=== PATIENT | female | born 1965 | race Caucasian/White ===

== ENCOUNTER 2016-04-09 05:56 | Day surgery (SDC) | payer BC ==
[2016-04-09] MEDS ORDERED: LACTATED RINGERS 1,000 ML ONE (06:06)
--- NOTE | 2016-04-09 09:24 | OP ---
DATE OF PROCEDURE: 04/09/16 PREOPERATIVE DIAGNOSIS: 1. Colorectal cancer screening. POSTOPERATIVE DIAGNOSIS: 1. Normal colonoscopy. PROCEDURE: 1. Colonoscopy. SURGEON: Claude Mitchell MD. SEDATION: Monitored anesthesia care. ESTIMATED BLOOD LOSS: 0 mL. PROCEDURE: Informed consent was obtained prior to sedation. The preprocedure cardiopulmonary assessment was satisfactory. The patient was brought to the Endoscopy Suite and placed in the left lateral decubitus position. She was then sedated by the anesthesia team. Digital rectal exam was unremarkable. The tip of the Olympus colonoscope was inserted into the rectum and advanced under direct visualization to the terminal ileum. The cecum was identified by the appendiceal orifice and ileocecal valve. Upon reaching the terminal ileum and cecum, the endoscope was slowly withdrawn from the colon with very careful examination of the colonic mucosa for the identification of any flat polyps or lesions. Preparation of the colon was good. The endoscopic was withdrawn into the rectum where a retroflexed view of the anal verge showed no abnormalities. The endoscope was then withdrawn from the patient and the procedure terminated. RECOMMENDATION: 1. Discharge the patient home with escort. 2. Advance to regular diet. 3. Resume present medications. 4. Repeat colonoscopy in 10 years for screening purposes. 5. Continue current bowel regimen for chronic constipation. 6. Return to GI clinic as needed. #[id number] [facility]
[2016-04-09 09:34] VITALS: BP 150/85; TEMP 97.8; O2SAT 97
[2016-04-09] MEDS ORDERED: PROPOFOL 200 MG/20 ML VIAL IV ONE (11:00)
== END 2016-04-09 09:31 | disposition home or self-care (01) ==
LOC: AMB 05:56
PROVIDERS: ATTEND Internal Medicine Gastroenterology
DX: Z12.11 Encounter for screening for malignant neoplasm of colon (principal); K59.09 Other constipation; E66.9 Obesity, unspecified; Z68.38 Body mass index [BMI] 38.0-38.9, adult; Z88.8 Allergy status to other drugs, medicaments and biological substances; Z79.899 Other long term (current) drug therapy
CPT/HCPCS: 00810; 45378; J3490; J7120

== ENCOUNTER → 2016-11-25 | Outpatient (CLI) | payer BC ==
--- NOTE | 2016-11-26 14:02 | MAM ---
EXAM DESCRIPTION: 3D Screening BILATERAL CLINICAL HISTORY: 51 yearsFemaleSCREENING . Postmenopausal. No complaints. No family history of breast cancer. Currently on HRT. Prior left benign biopsy. COMPARISON: 2-D digital screening bilateral study 11/19/2015 and 11/15/2014. Report from prior examination also reviewed. TECHNIQUE: Bilateral CC and MLO projection full-field images, 3-D tomosynthesis digital mammographic technique. Also bilateral synthesized CC/ MLO full-field images. CAD not utilized. FINDINGS: The breast parenchymal density pattern is: Almost entirely fatty. No skin thickening or nipple retraction bilateral intramammary lymph nodes. Right breast axillary lymph nodes. Bilateral solitary microcalcifications. Bilateral vascular calcifications. No focal, stellate mass or density, focal asymmetry , and no suspicious microcalcifications Stable mammograms compared to prior study, taking into account differences in mammographic technique IMPRESSION: BI-RADS CATEGORY: 2 - BENIGN FINDINGS. FOLLOW UP: Routine digital bilateral screening, one year interval from November 2016. Written communication explaining the IMPRESSION and follow-up, will be mailed to the patient and referring health care provider. According to the [employer], yearly mammograms are recommended starting at age 40 and continuing as long as a woman is in good health. Any breast change noted on a breast self-exam should be reported promptly to the patient's healthcare provider. Breast MRI is recommended for women with an approximately 20-25% or greater lifetime risk of breast cancer, including women with a strong family history of breast or ovarian cancer and women who have been treated for Hodgkin's disease. A negative mammographic report should not delay tissue diagnosis in patients with significant clinical history or physical findings. Extremely dense breast tissue limits the sensitivity of digital mammography. Electronically signed by: Jose Scott MD 11/26/2016 2:01 PM CDT
== END | disposition home or self-care (01) ==
LOC: MAMMO 11:27
PROVIDERS: ATTEND Obstetrics & Gynecology
DX: Z12.31 Encounter for screening mammogram for malignant neoplasm of breast (principal)
CPT/HCPCS: 77063; G0202

== ENCOUNTER → 2017-01-02 | Outpatient (CLI) | payer BC | END | disposition home or self-care (01) | LOC: GMAB 10:15 | PROVIDERS: ATTEND Family Medicine | DX: I10 Essential (primary) hypertension (principal) ==

== ENCOUNTER → 2017-12-21 | Outpatient (CLI) | payer BC ==
--- NOTE | 2017-12-22 20:46 | MAM ---
EXAM DESCRIPTION: 3D Screening BILATERAL : Digital Mammography. CLINICAL HISTORY: 52 years Female SCREENING . No complaints. No personal or family history of breast cancer. Childbirth. Postmenopausal. Currently on HRT. Lifetime risk of developing breast cancer (Tyrer-Cuzick model)(%): 6.1. COMPARISON: Bilateral screening digital breast tomosynthesis 11/25/2016.. 2-D digital screening bilateral mammography 11/19/2015. TECHNIQUE: Bilateral CC and MLO projection full-field images, with [employer] Displacement digital tomosynthesis mammographic technique. Bilateral 2-D digital full-field images, MLO and CC projections, non-displaced. CAD Bilateral digital 2-D full-field MLO images. CAD not available for tomosynthesis or 2-D images. FINDINGS: The breast parenchymal density pattern is: Scattered areas of fibroglandular density. No skin thickening or nipple retraction. Bilateral axillary lymph nodes. Bilateral microcalcifications. Left axillary lymph node, seen only on the MLO image and MLO tomosynthesis, is slightly enlarged since the prior study 2016 but still maintains mammographic characteristics of a lymph node. Similar size in 2016.. No new focal, stellate mass or density, focal asymmetry , and no suspicious microcalcifications bilaterally. Stable mammograms compared to prior study. Taking into account, differences in mammographic technique. IMPRESSION: Benign exam. BIRAD CATEGORY: 2 BENIGN FINDINGS. RECOMMENDATIONS: FOLLOW UP: Routine digital bilateral mammographic screening, one year interval from December 2017. Written communication explaining the IMPRESSION and follow-up, will be mailed to the patient and referring health care provider. According to the [employer], yearly mammograms are recommended starting at age 40 and continuing as long as a woman is in good health. Any breast change noted on a breast self-exam should be reported promptly to the patient's healthcare provider. Breast MRI is recommended for women with an approximately 20-25% or greater lifetime risk of breast cancer, including women with a strong family history of breast or ovarian cancer and women who have been treated for Hodgkin's disease. A negative mammographic report should not delay tissue diagnosis in patients with significant clinical history or physical findings. Extremely dense breast tissue limits the sensitivity of digital mammography. Electronically signed by: Jose Scott MD 12/22/2017 8:45 PM CONSIGNEE
== END ==
LOC: MAMMO 09:00
PROVIDERS: ATTEND Obstetrics & Gynecology
DX: Z12.31 Encounter for screening mammogram for malignant neoplasm of breast (principal)

== ENCOUNTER → 2018-01-12 | Outpatient (CLI) | payer BC | LOC: GMAE 11:29 | PROVIDERS: ATTEND Family Medicine | DX: Z00.01 Encounter for general adult medical examination with abnormal findings (principal) ==

== ENCOUNTER → 2018-09-14 | Outpatient (CLI) | payer BC | LOC: GMATM 20:18 | PROVIDERS: ATTEND Nurse Practitioner Family | DX: R06.02 Shortness of breath (principal); R60.0 Localized edema ==

== ENCOUNTER → 2018-09-17 | Outpatient (CLI) | payer BC ==
--- NOTE | 2018-09-20 09:01 | US ---
Study: Arterial doppler sonogram of the bilateral lower extremities. Indication: STATIS DERMATITIS Technique: Sonographic evaluation of the bilateral lower extremity arteries performed. Impression: Arterial waveforms of the bilateral lower extremity arteries are multiphasic throughout without high-grade stenosis, occlusion or elevated peak systolic flow velocities. Electronically signed by: Edson Judge MD 09/20/2018 8:59 AM CDT
== END ==
LOC: US 13:40
PROVIDERS: ATTEND Nurse Practitioner Family
DX: I87.2 Venous insufficiency (chronic) (peripheral) (principal)

== ENCOUNTER → 2019-03-31 | Outpatient (CLI) | payer BC | LOC: GMAE 10:35 | PROVIDERS: ATTEND Family Medicine | DX: Z00.00 Encounter for general adult medical examination without abnormal findings (principal) ==

== ENCOUNTER → 2019-06-29 | Outpatient (CLI) | payer BC | LOC: GMAE 11:40 | PROVIDERS: ATTEND Family Medicine | DX: E03.9 Hypothyroidism, unspecified (principal) ==

== ENCOUNTER 2019-08-01 18:16 | Emergency (ER) | payer BC ==
--- NOTE | 2019-08-01 18:28 | ED.PDOC ---
History of Present Illness - General Time Seen by Provider: 08/01/19 18:18 Additional Information: 33-year-old female, presents to the ER because of right upper quadrant pain some chills symptoms began around 11:00 in the morning today, patient stated that she woke up this morning fine and then when she was at work started having the discomfort in her right upper quadrant side, that got progressively worse, patient walked in looks uncomfortable denies any nausea vomiting denies any dysuria or hematuria Patient has a history of hypertension, has had multiple surgeries in the past including appendectomy hysterectomy and breast reduction She does not smoke does not drink Denies fever chills coughing or chest pain - History of Present Illness Abdominal Pain Onset Location: RUQ Pain Radiation: back Quality: sharpness Timing/Duration: getting worse Improving Factors: nothing Worsening Factors: nothing Associated Symptoms: denies symptoms Review of Systems - Review of Systems Constitutional: States: no symptoms reported EENTM: States: no symptoms reported Respiratory: States: no symptoms reported Cardiology: States: no symptoms reported Gastrointestinal/Abdominal: States: abdominal pain Genitourinary: States: no symptoms reported Musculoskeletal: States: no symptoms reported Skin: States: no symptoms reported Neurological: States: no symptoms reported, emotional problems Endocrine: States: intolerance to heat Past Medical History (General) - Patient Medical History Hx Hypertension: Yes Hx MRSA: No - Vaccination History Hx Influenza Vaccination: Yes - Social History Hx Tobacco Use: No Hx Alcohol Use: No Family Medical History - Family History Mother Family History: Unknown Physical Exam - Physical Exam General Appearance: Alert, Well Developed, Well Groomed, Well Hydrated, Well Nourished Eyes, Ears, Nose, Throat Exam: PERRL/EOMI, normal ENT inspection, TMs normal Neck: non-tender, full range of motion, supple, normal inspection Respiratory: chest non-tender, lungs clear, normal breath sounds, no respiratory distress, no accessory muscle use Cardiovascular/Chest: normal peripheral pulses, regular rate, rhythm, no edema, no gallop, no JVD, no murmur Peripheral Pulses: No deficit Gastrointestinal/Abdominal: other - Right upper quadrant pain no rebound no guarding no distention negative McBurney negative psoas negative obturator, signs of peritonitis on physical exam Back Exam: normal inspection Extremity: normal range of motion, non-tender, normal inspection 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, no motor/sensory deficits, alert, normal mood/affect, oriented x 3 Skin Exam: normal color Lymphatic: no adenopathy Progress - Progress Progress: 08/01/19 21:03 The patient presents to the ER because of right upper quadrant pain extending into her back, but no right flank pain patient had no acute abdomen no longer has an appendix, I was concerned for possible clot as requested status so order basic labs including CBC CMP lipase and an ultrasound Patient did not show any That is normal liver enzymes, chest x-ray did not show evidence of pneumonia to suggest atypical pneumonia, and ultrasound did not show evidence of cholecystitis or cystitis patient appears well does not be in any distress will be discharged home with follow-up primary care physician I told the patient to return to the ER any blood in the urine dysuria fever chills nausea vomiting abdominal pain back pain diarrhea pruritus Doerun decrease her intake unable to holding fluids down or any other concern Departure - Departure Clinical Impression: Abdominal pain Qualifiers: Abdominal location: right upper quadrant Qualified Code(s): R10.11 - Right upper quadrant pain Disposition: Discharge to Home or Self Care Condition: Fair Instructions: DI for Abdominal Pain-Adult Diet: full liquid diet Referrals: JONATHAN COSME MD [Primary Care Provider] - 1-2 Weeks Prescriptions: Acetaminophen W/ Codeine [Tylenol W/ CODEINE #3] 1 ea PO Q6HR #20 Ondansetron Odt [Zofran ODT] 4 mg PO Q6HR #20 tab Famotidine [Pepcid] 20 mg PO BID #10 tab Home Medications: Ambulatory Orders Mobic 15 mg PO BEDTIME 12/12/13 Vitamin D 5,000 units PO BEDTIME 12/12/13 Amlodipine Besylate [Norvasc] 10 mg PO BEDTIME 05/24/14 Estradiol 2 mg PO BEDTIME 05/24/14 Losartan Potassium & Hydrochlo [Losartan Potassium/Hydroc 50-12.5 mg] 1 tab PO DAILY 05/24/14 Ibuprofen-Diphenhydramine HCl [Advil Pm] 1 cap PO BEDTIME PRN 04/08/16 Acetaminophen W/ Codeine [Tylenol W/ CODEINE #3] 1 ea PO Q6HR #20 08/01/19 Famotidine [Pepcid] 20 mg PO BID #10 tab 08/01/19 Ondansetron Odt [Zofran ODT] 4 mg PO Q6HR #20 tab 08/01/19 Additional Instructions: told the patient to return to the ER any blood in the urine dysuria fever chills nausea vomiting abdominal pain back pain diarrhea pruritus Doerun decrease her intake unable to holding fluids down or any other concern
--- NOTE | 2019-08-01 18:45 | RAD ---
EXAM: XR Chest, 1 View CLINICAL HISTORY: The patient is 53 years old and is Female; ruq pain TECHNIQUE: Single upright portable view of the chest. COMPARISON: June 20, 2010. FINDINGS: Lungs: Unremarkable. No consolidation. Pleural space: Unremarkable. No pneumothorax. Heart: Unremarkable. No cardiomegaly. Mediastinum: Unremarkable. Bones/joints: The visualized bones and joints are unremarkable. Upper abdomen: The visualized upper abdomen is unremarkable. IMPRESSION: No acute cardiopulmonary process identified. Electronically signed by: Tammy Domínguez MD 08/01/2019 6:43 PM CDT
--- NOTE | 2019-08-01 20:43 | US ---
EXAM DESCRIPTION: Abdomen,Limited CLINICAL HISTORY: 53 years Female right upper quadrant pain COMPARISON: None TECHNIQUE: Real-time sonography of the right upper abdomen was performed. FINDINGS: Gallbladder is visualized with no evidence for gallstones. Common bile measured 4 mm. Gallbladder wall measures 2 mm. No focal hepatic abnormality. No intrahepatic biliary dilatation. Increased echogenicity hepatic parenchyma. Right kidney is normal in size and echogenicity measuring 10.7 x 3.6 x 4.9 cm. No hydronephrosis seen. No abnormality abdominal aorta. No abnormal fluid collections seen. IMPRESSION: No evidence for gallstones. Fatty change involving liver. Electronically signed by: Naina Lopez MD 08/01/2019 8:41 PM CDT
[2019-08-01 21:40] VITALS: BP 157/96; TEMP 97.6; O2SAT 97
== END 2019-08-01 21:43 | disposition home or self-care (01) ==
LOC: ER 18:16
DX: R10.11 Right upper quadrant pain (principal); I10 Essential (primary) hypertension

== ENCOUNTER 2019-11-21 20:05 | Emergency (ER) | payer BC ==
--- NOTE | 2019-11-21 21:05 | ED.PDOC ---
History of Present Illness - General Chief Complaint: General Stated Complaint: knee pain Time Seen by Provider: 11/21/19 21:05 Source: patient - History of Present Illness Initial Comments: 54-year-old female with past medical history of hypertension, obesity who presents with chief complaint of left knee pain. Patient reports the pain is been going on for several months. She believes it first began after she had a fall in February where she tripped in the [employer] parking lot and landed on the anterior left knee. She reports constant daily chronic pain. Describes as diffuse pain throughout the entire knee, dull aching in nature, currently 8/10 severity, worst after sitting for a while and then standing and walking but improves after on her feet and walking for a short while, has been taking Advil intermittently with little relief. Denies any bruising, swelling, deformity, redness, warmth. Denies any calf pain or swelling or redness or warmth. 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 PCP is Dr. Fraser. Allergies/Adverse Reactions: Allergies NO KNOWN ALLERGY Allergy (Verified 11/21/19 21:12) Home Medications: Ambulatory Orders Mobic 15 mg PO BEDTIME 12/12/13 Vitamin D 5,000 units PO BEDTIME 12/12/13 Amlodipine Besylate [Norvasc] 10 mg PO BEDTIME 05/24/14 Estradiol 2 mg PO BEDTIME 05/24/14 Losartan Potassium & Hydrochlo [Losartan Potassium/Hydroc 50-12.5 mg] 1 tab PO DAILY 05/24/14 Ibuprofen-Diphenhydramine HCl [Advil Pm] 1 cap PO BEDTIME PRN 04/08/16 Acetaminophen W/ Codeine [Tylenol W/ CODEINE #3] 1 ea PO Q6HR #20 08/01/19 Famotidine [Pepcid] 20 mg PO BID #10 tab 08/01/19 Ondansetron Odt [Zofran ODT] 4 mg PO Q6HR #20 tab 08/01/19 Tramadol HCl 50 mg PO Q6H PRN 10 Days #12 tab 11/21/19 Review of Systems - Review of Systems Review of Systems: 11/21/19 22:01 as per HPI Past Medical History (General) - Patient Medical History Hx Hypertension: Yes Hx MRSA: No - Vaccination History Hx Influenza Vaccination: Yes - Social History Hx Tobacco Use: No Hx Alcohol Use: No Family Medical History - Family History Mother Family History: Unknown Physical Exam - Physical Exam General Appearance: Alert, Comfortable, No apparent distress, Obese Eye Exam: bilateral normal Ears, Nose, Throat: hearing grossly normal, normal ENT inspection Neck: normal inspection Respiratory: lungs clear, normal breath sounds, no respiratory distress, no accessory muscle use Cardiovascular/Chest: normal peripheral pulses, regular rate, rhythm, no edema, no gallop, no JVD, no murmur Peripheral Pulses: radial,right: 2+, radial,left: 2+ Gastrointestinal/Abdominal: non tender, soft Back Exam: normal inspection, no CVA tenderness Extremity: no calf tenderness, normal capillary refill, other - Left knee appears normal on inspection without bruising/swelling/deformity. Range of motion is mildly limited on full flexion due to pain. There is moderate bilateral joint line tenderness to palpation. There is no laxity on ligament testing. 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 Consider also remote knee fracture, meniscal injury, other. More serious/emergent etiologies appear highly unlikely. Patient is stable and in no acute distress. -Obtain x-ray imaging of the left knee. Toradol 60 mg IM for pain. 11/21/19 22:03 X-ray imaging of the left knee reveals no acute fractures or processes. There is mild to moderate joint space narrowing and mild evidence of bone spurring. This is consistent with osteoarthritis per my read. -Discussed the x-ray findings with patient and diagnosis of osteoarthritis of the left knee. Pain is improving. Discussed all conservative measures with the patient and she will need to follow-up with primary care physician for long-term pain control and to discuss possible knee joint injection. Advised to lose weight. Boogie Contreras MD Billing #[id number] Departure - Departure Clinical Impression: Osteoarthritis of left knee Qualifiers: Osteoarthritis type: primary Qualified Code(s): M17.12 - Unilateral primary osteoarthritis, left knee Time of Disposition: 22:05 Disposition: Discharge to Home or Self Care Condition: Good Departure Forms: ED Discharge - Pt. Copy, Patient Portal Self Enrollment, ED Discharge - Work Release Instructions: Osteoarthritis (DC) Diet: resume usual diet Activity: increase activity as tolerated Referrals: JONATHAN FRASER MD [Primary Care Provider] - 1-2 Weeks Prescriptions: Tramadol HCl 50 mg PO Q6H PRN 10 Days #12 tab PRN Reason: Pain Home Medications: Ambulatory Orders Mobic 15 mg PO BEDTIME 12/12/13 Vitamin D 5,000 units PO BEDTIME 12/12/13 Amlodipine Besylate [Norvasc] 10 mg PO BEDTIME 05/24/14 Estradiol 2 mg PO BEDTIME 05/24/14 Losartan Potassium & Hydrochlo [Losartan Potassium/Hydroc 50-12.5 mg] 1 tab PO DAILY 05/24/14 Ibuprofen-Diphenhydramine HCl [Advil Pm] 1 cap PO BEDTIME PRN 04/08/16 Acetaminophen W/ Codeine [Tylenol W/ CODEINE #3] 1 ea PO Q6HR #20 08/01/19 Famotidine [Pepcid] 20 mg PO BID #10 tab 08/01/19 Ondansetron Odt [Zofran ODT] 4 mg PO Q6HR #20 tab 08/01/19 Tramadol HCl 50 mg PO Q6H PRN 10 Days #12 tab 11/21/19 Additional Instructions: Follow the instruction packet provided for care of osteoarthritis of the knee. Continue taking [id number] medications for pain control including Tylenol 650 mg every 6 hours as needed and ibuprofen 600 mg every 6 hours as needed for pain. Do not take ibuprofen with Mobic as they are both NSAID medications. You may take the tramadol as directed for breakthrough pain. Do not drive or operate heavy machinery when taking this medication as it may make you drowsy. Follow-up with your primary care physician in the next 1 to 2 weeks for repeat evaluation or sooner as needed.
[2019-11-21 21:12] VITALS: BP 167/86; TEMP 98.1; O2SAT 99
--- NOTE | 2019-11-21 21:55 | RAD ---
EXAM DESCRIPTION: XR Knee, Left Complete CLINICAL HISTORY: left knee pain TECHNIQUE: Three views of the left knee are submitted. COMPARISON: None available for comparison FINDINGS: Bones: No acute or remote fracture deformity. No osseous destruction or erosion. Joints: No dislocation. No appreciable joint effusion. Soft tissues: Unremarkable IMPRESSION: No acute abnormality. Electronically signed by: Clem Pro MD 11/21/2019 9:53 PM CDT
[2019-11-21] MEDS ORDERED: KETOROLAC TROMETHAMINE INJ 60 MG/2 ML VIAL IM ONE (21:58)
[2019-11-21] MEDS ORDERED: traMADol HCL 50 MG (ER DISP) # 6 TABS PO ONE (22:09)
== END 2019-11-21 22:25 | disposition home or self-care (01) ==
LOC: ER 20:05
DX: M17.12 Unilateral primary osteoarthritis, left knee (principal); I10 Essential (primary) hypertension; E66.9 Obesity, unspecified; Z79.899 Other long term (current) drug therapy; Z68.41 Body mass index [BMI] 40.0-44.9, adult
CPT/HCPCS: 73562; J1885